=== PATIENT | male | born 1995 | race Hispanic/Latino ===

== ENCOUNTER 2019-02-02 12:10 | Emergency (ER) | payer SELFPAY ==
[2019-02-02] MEDS ORDERED: IBUPROFEN 600 MG TABLET ONE (12:42)
[2019-02-02 13:02] LABS: RAPID GROUP A STREP NEGATIVE (NEGATIVE)
== END 2019-02-02 14:33 | disposition home or self-care (01) ==
LOC: EDH 12:10
DX: J02.9 Acute pharyngitis, unspecified (principal); R50.9 Fever, unspecified; Z72.0 Tobacco use; Z98.890 Other specified postprocedural states
CPT/HCPCS: 87804; 87880